=== PATIENT | male | born 1965 | race Hispanic/Latino ===

== ENCOUNTER 2024-10-01 06:38 | Day surgery (SDC) | payer OTHER ==
[2024-09-29 09:31] VITALS: BP 148/73; PULSE 69; RESP 18; TEMP 97.5
[2024-09-29 09:34] LABS: BASOPHILS # (AUTO) 0.03 K/uL (0.00-0.20); BASOPHILS % (AUTO) 0.4 % (0.0-5.0); EOSINOPHILS # (AUTO) 0.18 K/uL (0.00-0.70); EOSINOPHILS % (AUTO) 2.3 % (0.0-8.0); HEMATOCRIT 47.2 % (42-54); IMMATURE GRANULOCYTE ABSOLUTE 0.02 K/uL (0-1); LYMPHOCYTES # (AUTO) 2.7 K/uL (1.0-4.8); MEAN CORPUSCULAR HEMOGLOBIN 33.7 pg (27.0-33.0); MEAN CORPUSCULAR HGB CONC 35.2 g/dL (32.0-36.0); MEAN CORPUSCULAR VOLUME 95.7 fL (79-99); MONOCYTES # (AUTO) 0.7 K/uL (0.1-1.0); MONOCYTES % (AUTO) 8.7 % (3.0-13.0); NEUTROPHILS # (AUTO) 4.3 K/uL (1.8-7.7); NEUTROPHILS % (AUTO) 54.3 % (40.0-77.0); PLATELET COUNT (AUTO) 292 K/uL (130-400); RED BLOOD CELL COUNT(AUTO) 4.93 MIL/uL (4.50-6.20); RED CELL DISTRIBUTION WIDTH 12.4 % (11.0-15.5); WHITE BLOOD COUNT (AUTO) 7.9 K/uL (4.8-10.8)
[2024-09-29 09:45] LABS: CREATININE 1.6 mg/dL (0.5-1.3); POTASSIUM 4.5 mmol/L (3.5-5.1)
[2024-09-29 09:47] LABS: INR 1.02 (0.85-1.15); PROTHROMBIN TIME 10.8 SEC (9.6-11.6)
--- NOTE | 2024-09-30 15:14 | NUR ---
RE: LABS REPORTED BMP RESULTS TO DR ANGULO, NO NEW ORDERS RECEIVED.
[~2024-10-01] VITALS: Ht 180.3 cm; Wt 115.7 kg
[2024-10-01] VITALS (14 sets, daily range): BP systolic 102–133; BP diastolic 41–75; PULSE 54–89; RESP 13–18; TEMP 97.1–97.9
[~2024-10-01 06:38] MED LIST: ASPI-1443 PO; EMPA1TAB7 PO; EZET10TA48 PO; FLUO-418 PO; FLUT16H NASAL; FLUT1BLS15 IH; INSU100V37 SQ; LACTATED RINGERS 1000ML 0 ML IV ONE; LISI10TA24 PO; MONT-39 PO; MVIT PO; OMEG100033 PO; PROP20TA7 PO
[2024-10-01] MEDS ORDERED: rocuRONium bROMide 10MG/1ML 5ML VL ONE (06:42)
[2024-10-01] MEDS ORDERED: proPOFol 10 MG/ML 20ML VIAL IV ONE (06:42)
[2024-10-01] MEDS ORDERED: MIDAZOLAM HCL 1 MG/ML 2ML VIAL ONE (06:42)
[2024-10-01] MEDS ORDERED: FENTanyl CITRate PF 50 MCG/1 ML 2ML VIAL ONE ×2 (06:43→07:48)
[2024-10-01] MEDS ORDERED: ondanSETRON 4MG INJ ONE (07:05)
[2024-10-01] MEDS: ceFAZolin SODIUM 2 GM VIAL ONE (07:26)
[2024-10-01] MEDS: 0.9%NACL 1000ML 1,000 ML IV ONE (07:30)
[2024-10-01] MEDS ORDERED: phenylEPHRINE HCL 10 MG/ML 1ML VIAL IV ONE (07:35)
[2024-10-01] MEDS: BUPIvacaine/PF 0.25% 30ML VIAL IJ ONE (07:47)
[2024-10-01] MEDS ORDERED: GLYCOPYRROLATE 0.2 MG/ML 5 ML VIAL ONE (07:47)
[2024-10-01] MEDS ORDERED: NEOSTIGMINE METHYLSULFATE 1MG/ML IV ONE (07:47)
[2024-10-01] MEDS ORDERED: ACET-66 PO (07:59)
[2024-10-01] MEDS: IpraTROPium/alBUTERol SULFATE 3 ML SOLUTION IH ONE (08:21)
[2024-10-01] MEDS: IpraTROPium/alBUTERol SULFATE 3 ML SOLUTION IH STA (10:31)
--- NOTE | 2024-10-01 11:54 | OP ---
Operative Note: DATE OF PROCEDURE: 10/01/24 SURGEON: DAKOTA HALE MD [employer] BOOKKEEPER: Mehnaz Sheridan ANESTHESIA: General ANESTHESIOLOGIST/PRODUCTION HAND: Angel Crowley PREOPERATIVE DIAGNOSIS: Left ring finger trigger finger POSTOPERATIVE DIAGNOSIS: Left ring finger trigger finger PROCEDURE: Left ring finger trigger finger release ESTIMATED BLOOD LOSS: None INDICATIONS: 59-year-old male with left ring finger trigger finger. Patient has locking and clicking of the finger with range of motion that has become debilitating. After discussion of the risk, benefits, and alternatives, the patient voluntarily agreed to undergo the aforementioned procedure. DESCRIPTION OF PROCEDURE: Patient was properly identified in the preoperative holding area. Surgical site marking was verified and surgery consent reviewed. The patient was then taken to the operating room and placed in supine position on the OR table. After induction of general anesthesia, preoperative antibiotics were given, all bony prominences were well-padded, and a well padded tourniquet was applied but not inflated at this time. The left upper extremity was then prepped and draped in usual sterile fashion. Surgical time out was done verifying correct surgery, side, site, and location to be performed. We then began the procedure by exsanguinating the arm using an Esmarch and inflating a tourniquet to 250 mmHg. We made an approximately 1 cm long incision at the level of the A1 chandrika on the volar aspect of the metacarpal head for the ring finger. Here we came down sharply through the subcutaneous tissue and identified the A1 chandrika. We then began to come through this a little bit at a time using a 15 blade with small amounts of pressure being applied. The chandrika was then are not released. We then checked proximally and distally with a freer elevator to ensure we had full release. The tendons were then delivered into the wound using abdominal and the center retractor. There was no significant pathologic tissue noted on the tendons. We then thoroughly irrigated out the wounds with normal saline and injected the surrounding tissue with Marcaine. The wounds were then closed with 3-0 nylon interrupted simple suture pattern. Soft sterile dressing was applied with Xeroform, 4 x 4's, and Coban. The tourniquet was then deflated. The patient was then awakened from anesthesia and taken to the recovery in stable condition. DAKOTA HALE MD Oct 01, 2024 11:54
== END 2024-10-01 09:36 | disposition home or self-care (01) ==
LOC: DAH 06:38
PROVIDERS: ATTEND Student in an Organized Health Care Education/Training Program
DX: M65.342 Trigger finger, left ring finger (principal); M79.645 Pain in left finger(s); J45.909 Unspecified asthma, uncomplicated; E66.01 Morbid (severe) obesity due to excess calories; I10 Essential (primary) hypertension; E11.9 Type 2 diabetes mellitus without complications; Z91.018 Allergy to other foods; Z68.35 Body mass index [BMI] 35.0-35.9, adult; Z79.82 Long term (current) use of aspirin; Z79.899 Other long term (current) drug therapy; Z98.890 Other specified postprocedural states
CPT/HCPCS: 80048; 85025; 85610; 85730; 36415; 26055; 82948 ×2; 94640; A4663; J3010 ×2; J7030; J0665; J3490 ×2; J2250; J2704; J2405; J2710; J2371; J0690; A6223; A4649; A4930; A5120; A4215; A4222; A4221; A4216; A4223 ×2; A4600; J7120